=== PATIENT | male | born 1985 | race African-American/Black ===

== ENCOUNTER 2022-05-27 17:53 | Emergency (ER) | payer MEDICAID ==
[~2022-05-27] VITALS: Ht 175.3 cm; Wt 74.0 kg
[2022-05-27 18:04] VITALS: BP 156/98
[2022-05-28 00:11] LABS: BASOPHILS % 0.9 % (0.0-2.0); EOSINOPHILS % 1.5 % (0.0-5.0); HEMATOCRIT. 35.2 % (42.0-52.0); LYMPHOCYTES % 16.3 % (20.0-50.0); MEAN CORPUSCULAR HEMOGLOBIN 33.2 pg (28.0-32.0); MEAN CORPUSCULAR VOLUME 97.5 fL (80.0-94.0); MEAN PLATELET VOLUME 8.2 fl (7.4-10.4); MONOCYTES % 7.6 % (2.0-8.0); NEUTROPHILS % 73.7 % (40.0-76.0); PLATELET 204 x1000/uL (130-400); RED BLOOD CELL COUNT 3.61 mill/uL (4.7-6.1); RED CELL DISTRIBUTION WIDTH 13.7 % (11.6-14.6)
[2022-05-28 00:20] LABS: CHLORIDE 105 mEq/L (98-107)
[2022-05-28 00:52] LABS: CLARITY URINE CLEAR (CLEAR); COLOR URINE YELLOW (YELLOW); KETONES URINE NEGATIVE (NEGATIVE); LEUKOCYTE ESTERASE URINE NEGATIVE (NEGATIVE); NITRITE URINE NEGATIVE (NEGATIVE); OCCULT BLOOD URINE NEGATIVE (NEGATIVE); PH URINE 5.5 (4.5-8.0); PROTEIN URINE 3+ (NEGATIVE); SPECIFIC GRAVITY URINE 1.016 (1.005-1.030); UROBILINOGEN URINE 0.2 E.U./dL (0.2-1.0)
[2022-05-28] MEDS ORDERED: CLIN-194 PO (01:25)
[2022-05-28] MEDS ORDERED: ACET-2708 PO (01:25)
[2022-05-28] MEDS ORDERED: AMOX1TAB16 PO (01:25)
== END 2022-05-28 01:36 | disposition home or self-care (01) ==
LOC: ER 17:53
DX: L02.31 Cutaneous abscess of buttock (principal); R07.89 Other chest pain; I13.0 Hypertensive heart and chronic kidney disease with heart failure and stage 1 through stage 4 chronic kidney disease, or unspecified chronic kidney disease; N18.9 Chronic kidney disease, unspecified; R79.89 Other specified abnormal findings of blood chemistry; R94.31 Abnormal electrocardiogram [ECG] [EKG]; E11.22 Type 2 diabetes mellitus with diabetic chronic kidney disease; I50.9 Heart failure, unspecified; D53.9 Nutritional anemia, unspecified; Z79.899 Other long term (current) drug therapy; E78.00 Pure hypercholesterolemia, unspecified
CPT/HCPCS: 36415; 71045; 80053; 81003; 83880; 84484; 85025; 93005; 99285

== ENCOUNTER 2022-10-11 16:39 | Emergency (ER) | payer MEDICAID, OTHER ==
[~2022-10-11] VITALS: Ht 175.3 cm; Wt 73.0 kg
[~2022-10-11 16:39] MED LIST: ACET-2708 PO; AMOX1TAB16 PO; CLIN-194 PO
[2022-10-11 19:08] LABS: BASOPHILS % 0.2 % (0.0-2.0); EOSINOPHILS % 0.3 % (0.0-5.0); HEMOGLOBIN. 9.1 g/dL (14.0-18.0); LYMPHOCYTES % 10.2 % (20.0-50.0); MEAN CORPUSCULAR HEMOGLOBIN 32.3 pg (28.0-32.0); MEAN CORPUSCULAR VOLUME 96.1 fL (80.0-94.0); MEAN PLATELET VOLUME 8.1 fl (7.4-10.4); MONOCYTES % 5.7 % (2.0-8.0); NEUTROPHILS % 83.6 % (40.0-76.0); PLATELET 285 x1000/uL (130-400); RED BLOOD CELL COUNT 2.81 mill/uL (4.7-6.1); RED CELL DISTRIBUTION WIDTH 14.6 % (11.6-14.6)
[2022-10-11 19:19] LABS: *AMPHETAMINES SCREEN URINE NEGATIVE (NEGATIVE); *BARBITURATES SCREEN URINE NEGATIVE (NEGATIVE); *BENZODIAZEPINES SCREEN URINE NEGATIVE (NEGATIVE); *COCAINE SCREEN URINE NEGATIVE (NEGATIVE); CANNABINOID URINE SCREEN PRESUMTIVE POSITIVE (NEGATIVE); METHADONE URINE SCREEN NEGATIVE (NEGATIVE); OPIATES URINE SCREEN NEGATIVE (NEGATIVE); PHENCYCLIDINE URINE SCREEN NEGATIVE (NEGATIVE)
[2022-10-11 19:20] LABS: CHLORIDE 109 mEq/L (98-107)
[2022-10-11 19:29] LABS: ETHANOL BLOOD < 10 mg/dL
[2022-10-11 20:15] VITALS: BP 164/91
== END 2022-10-11 20:35 | disposition home or self-care (01) ==
LOC: ER 16:39
DX: R55 Syncope and collapse (principal); I11.0 Hypertensive heart disease with heart failure; I50.9 Heart failure, unspecified; E78.00 Pure hypercholesterolemia, unspecified; E11.9 Type 2 diabetes mellitus without complications; I25.10 Atherosclerotic heart disease of native coronary artery without angina pectoris
CPT/HCPCS: 36415; 70450; 71045; 80053; 80305; 80320; 83880; 84484; 85025; 93005; 99285; Z7610; G0480

== ENCOUNTER 2025-01-15 00:07 | Emergency (ER) | payer MEDICARE, MEDICAID ==
[~2025-01-15] VITALS: Ht 175.3 cm; Wt 71.2 kg
[~2025-01-15 00:07] MED LIST changes: +AMLO10TA80 PO; +CLON0.3T PO; +DOCU-422 PO; +FAMO-135 PO; +FERR-63 PO; +FOLI0.8T53 PO; +HYDR100T11 PO; +KEPP500 PO; +LOSA100T33 PO; +SEVE800T8 PO; +TOPUD PO
[2025-01-15 00:13] VITALS: O2SAT 99
[2025-01-15 00:32] VITALS: TEMP 36.7
[2025-01-15] MEDS: CLONIDINE 0.1MG TABLET PO NR (01:17)
[2025-01-15] MEDS: HYDRALAZINE HCL 50MG TABLET PO NR (01:17)
[2025-01-15 02:07] VITALS: BP 186/89; PULSE 68; RESP 14; O2SAT 96
== END 2025-01-15 02:09 | disposition home or self-care (01) ==
LOC: ER 00:07
DX: T82.838A Hemorrhage due to vascular prosthetic devices, implants and grafts, initial encounter (principal); E11.22 Type 2 diabetes mellitus with diabetic chronic kidney disease; E78.00 Pure hypercholesterolemia, unspecified; I13.2 Hypertensive heart and chronic kidney disease with heart failure and with stage 5 chronic kidney disease, or end stage renal disease; I50.9 Heart failure, unspecified; I77.0 Arteriovenous fistula, acquired; N18.6 End stage renal disease; Z79.899 Other long term (current) drug therapy; Z88.2 Allergy status to sulfonamides; Z88.1 Allergy status to other antibiotic agents; Z86.73 Personal history of transient ischemic attack (TIA), and cerebral infarction without residual deficits; Y84.1 Kidney dialysis as the cause of abnormal reaction of the patient, or of later complication, without mention of misadventure at the time of the procedure; Y92.89 Other specified places as the place of occurrence of the external cause
CPT/HCPCS: 99283